=== PATIENT | male | born 1980 | race Caucasian/White ===

== ENCOUNTER 2024-10-21 17:55 | Inpatient (IN) | payer SELFPAY ==
[2024-10-21] MEDS: LORazepam 2 MG/ML SDV IVPUSH ONE ×5 (18:01→19:33)
[2024-10-21] MEDS: Ondansetron 4 MG/2 ML SDV IVPUSH ONE (18:16)
[2024-10-21 18:28] LABS: BASOPHILS ABSOLUTE AUTO 0.1 K/mm3 (0.0-0.2); BASOPHILS PERCENT AUTO 0.7 % (0.0-1.0); EOSINOPHILS ABSOLUTE AUTO 1.1 K/mm3 (0.0-0.4); EOSINOPHILS PERCENT AUTO 6.7 % (0.0-6.0); HEMATOCRIT 49.2 % (42.0-52.0); HEMOGLOBIN 16.4 gm/dl (14.0-18.0); IMMATURE GRAN ABSOLUTE AUTO 0.09 K/mm3 (0.00-0.05); IMMATURE GRAN PERCENT AUTO 0.6 % (0.0-0.4); LYMPHOCYTES ABSOLUTE AUTO 6.8 K/mm3 (1.0-4.8); LYMPHOCYTES PERCENT AUTO 41.4 % (24.0-44.0); MEAN CORPUSCULAR HEMOGLOBIN 31.5 pg (28.0-32.0); MEAN CORPUSCULAR HGB CONC 33.3 g/dl (32.0-36.0); MEAN CORPUSCULAR VOLUME 94.6 fl (83.0-99.0); MEAN PLATELET VOLUME 10.7 fl (9.4-12.4); MONOCYTES ABSOLUTE AUTO 1.1 K/mm3 (0.0-0.8); MONOCYTES PERCENT AUTO 6.6 % (0.0-8.0); NEUTROPHILS ABSOLUTE AUTO 7.2 K/mm3 (1.8-7.7); PLATELET COUNT,PLT 306 K/mm3 (150-400); WHITE BLOOD CELL COUNT,WBC 16.36 K/mm3 (3.9-11.3)
[2024-10-21] MEDS: Sodium Chloride 0.9% 1,000 ML IV ONE (18:50)
[2024-10-21 18:58] LABS: A/G RATIO 1.1 (1-2); ALANINE AMINOTRANSFERASE,ALT 45 U/L (16-63); ALBUMIN 4.1 g/dl (3.4-5.0); ALKALINE PHOSPHATASE 105 U/L (46-116); ANION GAP 26.4 (5-15); ASPARTATE AMNIOTRANSFERASE,AST 35 U/L (15-37); BILIRUBIN TOTAL 0.4 mg/dL (0.2-1.0); BLOOD UREA NITROGEN,BUN 17 mg/dL (7-18); BUN/CREATININE RATIO 8.9 (14-18); CALCIUM 8.6 mg/dL (8.5-10.1); CARBON DIOXIDE,CO2 13 mEq/L (21-32); CHLORIDE,CL 105 mEq/L (98-107); CREATINE KINASE,CK 622 U/L (39-308); CREATININE 1.9 mg/dL (0.7-1.3); ESTIMATED GFR 44 mL/min (>60); ETHANOL BLOOD MEDICAL 0.08 gm% (0.00); MAGNESIUM 2.4 mg/dL (1.8-2.4); PROTEIN TOTAL,TP 7.8 g/dl (6.4-8.2); SODIUM,NA 141 mEq/L (136-145); TROPONIN I HIGH SENSITIVITY 20 pg/mL (<=76)
[2024-10-21 19:10] LABS: ACETAMINOPHEN 0 ug/mL (10-30); GLUCOSE RANDOM 163 mg/dL (70-99); POTASSIUM,K 3.4 mEq/L (3.5-5.1)
[2024-10-21] MEDS: LORazepam 2 MG/ML SDV ONE (20:02)
[2024-10-21] MEDS ORDERED: LORazepam 2 MG/ML SDV IVPUSH PRN ×2 (20:21→20:33)
[2024-10-21] MEDS ORDERED: LORazepam 1 MG Tab PO PRN (20:21)
[2024-10-21] MEDS ORDERED: Sennosides/Docusate Sodium 50-8.6 MG Tab PO PRN (20:23)
[2024-10-21] MEDS ORDERED: Morphine 2 MG/ML SYRINGE IVPUSH PRN (20:23)
[2024-10-21] MEDS ORDERED: Ondansetron 4 MG/2 ML SDV IV PRN (20:23)
[2024-10-21] MEDS ORDERED: Naloxone 0.4 MG/ML SDV IVPUSH PRN (20:23)
[2024-10-21] MEDS ORDERED: oxyCODONE 5 MG Tab PO PRN (20:23)
[2024-10-21] MEDS ORDERED: Melatonin 3 MG Tab PO PRN (20:23)
[2024-10-21] MEDS ORDERED: Labetalol 100 MG/20 ML MDV IVPUSH PRN (20:26)
[2024-10-21] MEDS ORDERED: hydrALAZINE 20 MG/ML SDV IVPUSH PRN (20:26)
[2024-10-21] MEDS ORDERED: D5 1/2 NS w/ 20 mEq/L KCl 1,000 ML IV SCH (20:30)
[2024-10-21 20:50] LABS: APPEARANCE,URINE CLEAR (Clear); BILIRUBIN,URINE NEGATIVE (Negative); COLOR,URINE YELLOW (Yellow); GLUCOSE,URINE NEGATIVE (Negative); KETONES,URINE NEGATIVE (Negative); LEUKOCYTE ESTERASE,URINE NEGATIVE (Negative); NITRITE,URINE NEGATIVE (Negative); OCCULT BLOOD,URINE 1+ (Negative); PH,URINE 5.5 (5.0-8.0); PROTEIN,URINE 1+ (Negative); UROBILINOGEN,URINE 0.2 (0.2-1.0)
[2024-10-21 20:59] LABS: BARBITURATE SCREEN,URINE NEGATIVE (CUTOFF=200); BENZODIAZEPINES SCREEN,URINE PRESUMPTIVE POSITIVE (CUTOFF=150); BUPRENORPHINE SCREEN,URINE NEGATIVE (CUTOFF=10); METHADONE SCREEN, URINE NEGATIVE (CUT0FF=200); METHAMPHETAMINES SCREEN, URINE NEGATIVE (CUTOFF=500); OXYCODONE SCREEN,URINE NEGATIVE (CUT0FF=100); THC SCREEN,URINE 20 NG/ML NEGATIVE (CUTOFF=50)
[2024-10-21 21:06] LABS: AMPHETAMINES SCREEN, URINE NEGATIVE (CUTOFF=500)
[2024-10-21] MEDS: Famotidine 20 MG/2 ML SDV IVPUSH ONE (21:57)
[2024-10-21] MEDS: Piperacillin/Tazobactam 4.5 GM Vial IV ONE (21:58)
[2024-10-21] MEDS: Heparin Sodium 5,000 Units/ML Vial SUBCUT SCH (21:58)
[2024-10-21 22:16] LABS: BACTERIA,URINE FEW /hpf (FEW); SQUAMOUS EPITHELIAL CELLS,UR 0-5 /hpf (0-5); WBC,URINE 0-5 /hpf (0-5)
[2024-10-21 22:17] LABS: MUCUS,URINE FEW /hpf (FEW)
[2024-10-21] MEDS: Potassium Chloride 10 MEQ in Premix Bag 1 BAG IV SCH (22:19)
[2024-10-22] MEDS: Piperacillin/Tazobactam 4.5 GM in Sodium Chloride 0.9% 100 ML IV SCH (03:59)
[2024-10-22] MEDS: LORazepam 2 MG/ML SDV ONE (04:02)
[2024-10-22] MEDS: Ketamine 200 MG/20 ML MDV IVPUSH ONE (04:03)
[2024-10-22 04:29] LABS: BASOPHILS ABSOLUTE AUTO 0.1 K/mm3 (0.0-0.2); BASOPHILS PERCENT AUTO 0.5 % (0.0-1.0); EOSINOPHILS ABSOLUTE AUTO 0.3 K/mm3 (0.0-0.4); EOSINOPHILS PERCENT AUTO 3.3 % (0.0-6.0); HEMATOCRIT 42.2 % (42.0-52.0); IMMATURE GRAN ABSOLUTE AUTO 0.05 K/mm3 (0.00-0.05); IMMATURE GRAN PERCENT AUTO 0.5 % (0.0-0.4); LYMPHOCYTES ABSOLUTE AUTO 2.1 K/mm3 (1.0-4.8); LYMPHOCYTES PERCENT AUTO 21.5 % (24.0-44.0); MEAN CORPUSCULAR HGB CONC 33.2 g/dl (32.0-36.0); MEAN CORPUSCULAR VOLUME 87.6 fl (83.0-99.0); MEAN PLATELET VOLUME 10.4 fl (9.4-12.4); MONOCYTES ABSOLUTE AUTO 0.6 K/mm3 (0.0-0.8); MONOCYTES PERCENT AUTO 6.1 % (0.0-8.0); NEUTROPHILS ABSOLUTE AUTO 6.5 K/mm3 (1.8-7.7); NEUTROPHILS PERCENT AUTO 68.1 % (41.0-71.0); PLATELET COUNT,PLT 223 K/mm3 (150-400); RED BLOOD CELL COUNT 4.82 M/mm3 (4.52-5.90)
[2024-10-22 04:49] LABS: INR 1.08; PROTHROMBIN TIME 11.4 SECONDS (9.7-12.0)
[2024-10-22] MEDS: Piperacillin/Tazobactam 4.5 GM in Water For Injection, Sterile 20 ML IV SCH (04:57)
[2024-10-22 05:11] LABS: A/G RATIO 1.1 (1-2); ALBUMIN 3.6 g/dl (3.4-5.0); BILIRUBIN TOTAL 0.7 mg/dL (0.2-1.0); BUN/CREATININE RATIO 10.8 (14-18); C-REACTIVE PROTEIN 0.21 mg/dL (<0.30); CALCIUM 8.7 mg/dL (8.5-10.1); CREATININE 1.2 mg/dL (0.7-1.3); EST CRCL DRUG DOSING (CG) 79.37 mL/min; MAGNESIUM 2.2 mg/dL (1.8-2.4); PHOSPHORUS 3.6 mg/dL (2.6-4.7)
[2024-10-22 05:46] LABS: ANION GAP 16.6 (5-15); POTASSIUM,K 4.6 mEq/L (3.5-5.1)
[2024-10-22 05:59] LABS: FOLIC ACID 23.8 ng/mL (8.6-58.9)
[2024-10-22] MEDS ORDERED: Folic Acid 50 MG/10 ML MDV IV SCH (09:00)
[2024-10-22] MEDS ORDERED: Cyanocobalamin (Vitamin B12) 1,000 MCG/ML SDV IM SCH (09:00)
[2024-10-22] MEDS ORDERED: Thiamine 100 MG in Sodium Chloride 0.9% 100 ML IV SCH (09:00)
[2024-10-22] MEDS: Thiamine 200 MG/2 ML MDV IVPUSH SCH (10:50)
[2024-10-22] MEDS: Piperacillin/Tazobactam 4.5 GM Vial IV SCH (10:51)
[2024-10-22] MEDS ORDERED: Famotidine 20 MG/2 ML SDV IVPUSH SCH (21:00)
[2024-10-23 04:38] LABS: BASOPHILS ABSOLUTE AUTO 0.1 K/mm3 (0.0-0.2); BASOPHILS PERCENT AUTO 0.8 % (0.0-1.0); EOSINOPHILS ABSOLUTE AUTO 0.9 K/mm3 (0.0-0.4); EOSINOPHILS PERCENT AUTO 8.6 % (0.0-6.0); HEMATOCRIT 43.3 % (42.0-52.0); HEMOGLOBIN 14.9 gm/dl (14.0-18.0); IMMATURE GRAN ABSOLUTE AUTO 0.05 K/mm3 (0.00-0.05); IMMATURE GRAN PERCENT AUTO 0.5 % (0.0-0.4); LYMPHOCYTES ABSOLUTE AUTO 2.5 K/mm3 (1.0-4.8); LYMPHOCYTES PERCENT AUTO 23.3 % (24.0-44.0); MEAN CORPUSCULAR HEMOGLOBIN 29.3 pg (28.0-32.0); MEAN CORPUSCULAR HGB CONC 34.4 g/dl (32.0-36.0); MEAN CORPUSCULAR VOLUME 85.2 fl (83.0-99.0); MEAN PLATELET VOLUME 10.4 fl (9.4-12.4); MONOCYTES ABSOLUTE AUTO 0.6 K/mm3 (0.0-0.8); MONOCYTES PERCENT AUTO 5.9 % (0.0-8.0); NEUTROPHILS ABSOLUTE AUTO 6.4 K/mm3 (1.8-7.7); NEUTROPHILS PERCENT AUTO 60.9 % (41.0-71.0); PLATELET COUNT,PLT 231 K/mm3 (150-400); RED BLOOD CELL COUNT 5.08 M/mm3 (4.52-5.90); WHITE BLOOD CELL COUNT,WBC 10.53 K/mm3 (3.9-11.3)
[2024-10-23 04:58] LABS: ANION GAP 16.3 (5-15); C-REACTIVE PROTEIN 5.07 mg/dL (<0.30); CALCIUM 8.8 mg/dL (8.5-10.1); CREATININE 1.5 mg/dL (0.7-1.3); EST CRCL DRUG DOSING (CG) 63.5 mL/min; POTASSIUM,K 4.3 mEq/L (3.5-5.1)
[2024-10-23] MEDS: Enoxaparin 40 MG/0.4 ML Syringe SUBCUT SCH (09:36)
[2024-10-23] MEDS: Dextrose 5%-0.45% NaCl 1,000 ML IV SCH (09:38)
[2024-10-23] MEDS: Acetaminophen 325 MG Tab PO PRN (11:32)
[2024-10-24 05:08] LABS: ANION GAP 15.9 (5-15); BUN/CREATININE RATIO 11.9 (14-18); CALCIUM 8.9 mg/dL (8.5-10.1); CREATININE 1.6 mg/dL (0.7-1.3); EST CRCL DRUG DOSING (CG) 59.53 mL/min; POTASSIUM,K 3.9 mEq/L (3.5-5.1)
[2024-10-26 20:42] LABS: VITAMIN B1, WHOLE BLOOD 146 nmol/L (70-180)
== END 2024-10-24 10:51 | disposition home or self-care (01) | DRG 896 ==
LOC: JD.ED 17:55 → JD.ICU 20:21 → UNDOADMIN 20:21
PROVIDERS: ADMIT Student in an Organized Health Care Education/Training Program; ATTEND Student in an Organized Health Care Education/Training Program
DX: F10.139 Alcohol abuse with withdrawal, unspecified (principal); J96.01 Acute respiratory failure with hypoxia; R65.10 Systemic inflammatory response syndrome (SIRS) of non-infectious origin without acute organ dysfunction; N17.9 Acute kidney failure, unspecified; R41.0 Disorientation, unspecified; Z90.89 Acquired absence of other organs
CPT/HCPCS: 36415; 70450; 70450-26; 71045; 71045-26; 74176; 74176-26; 80048; 80053; 80143; 80179; 80306; 80307; 81001; 82550; 82607; 82746; 83735; 83880; 84100; 84425; 84484; 85025; 85610; 86140; 87428-QW; 93005; 96361; 96374; 96375; 96376; 99285-25; A9270-GY; J1644; J1650; J2060; J2405; J2543; J3411; J3480; J3490; J7030; J7799